=== PATIENT | male | born 1960 | race Caucasian/White ===

== ENCOUNTER 2018-05-18 06:40 | Observation (INO) | payer OTHER ==
[2018-05-18] MEDS ORDERED: NS 500 ML IV ONE (06:57)
[2018-05-18] MEDS ORDERED: ASPIRIN 81 MG CHEWABLE TAB PO ONE (06:57)
[2018-05-18] MEDS ORDERED: DIAZEPAM 5 MG/ML 1 ML SYR IVP ONE (06:58)
--- NOTE | 2018-05-18 07:08 | EDPHY ---
H & P Time Seen by Provider: 05/18/18 06:57 HPI/ROS: HPI Chest tightness, anxiety. 58-year-old male by private vehicle with his . This patient reports that for the last week he has had on and off sensations of anxiety and tightness in his chest. He reports that last night at 10:00 p.m. This tightness was worse than usual and he had some radiation of this pain/discomfort into his right arm. He reports that when he got up this morning he was doing some light activity around the house and also felt lightheaded. He does not have any history of coronary artery disease cardiac risk factors include significant family history and hyperlipidemia. Now that he is at the hospital he is feeling better. He reports still feeling somewhat anxious and having a low level of tightness in his chest. He reports he took 3 baby aspirin prior to arrival. ROS: Constitutional: No fever, no chills. As above. Eyes: No discharge. No changes in vision. ENT: No sore throat. No nasal congestion or rhinorrhea. Respiratory: No cough. No shortness of breath. Cardiac: As above, no palpitations. Gastrointestinal: No abdominal pain, no vomiting, no diarrhea. Genitourinary: No hematuria. No dysuria or increased frequency with urination. Musculoskeletal: No back pain. No neck pain. No myalgias or arthralgias. Skin: No rashes. Neurological: No headache. No focal weakness or altered sensation. Past medical history: Hip replacement. Denies any significant medical history other than noted. Social history: Nonsmoker. Here with his . No alcohol. Physical Exam: General Appearance: Alert, no distress. This patient is responding to questions appropriately and in full sentences. This patient appears well- hydrated and well-nourished. Eyes: Pupils equal and round no pallor or injection. No lid edema, erythema or injection. Respiratory: There are no retractions, lungs are clear to auscultation with good air movement bilaterally. Cardiovascular: Regular rate and rhythm. No murmur. Gastrointestinal: Abdomen is soft and nontender, no masses, bowel sounds normal. No focal tenderness at McBurney's point. No Peñaloza sign. Neurological: Motor sensory function is grossly intact. Cranial nerves are normal. Gait is normal. Skin: Warm and dry, no rashes. Musculoskeletal: Neck is supple and nontender. Extremities are symmetrical. All joints range without pain or impingement. Psychiatric: No agitation. No depression. Database: EKG: EKG time is 6:51 a.m.; EKG shows a narrow complex sinus rhythm with intermittent ventricular bigeminy and trigeminy with a ventricular rate of 76. The OH, QRS, QT intervals are within normal limits. There are no ST-T wave changes indicative of ischemic or injury pattern. No evidence of right heart strain. Interpreted by me. Imaging: Chest x-ray AP portable: Cardiac mediastinal silhouette is unremarkable. No acute cardiopulmonary disease process noted. Interpreted by me. Procedures: Emergency department course: Triage vital signs reviewed. He is mildly hypertensive. Triage vital signs otherwise normal. The patient had an IV placed. He was placed on a director of sustainability. EKG obtained and reviewed by myself shortly after arrival. He was started on IV normal saline with 500 cc to be given over the next hour. He will be given 5 mg of IV Valium for anxiety. 8:00 a.m., patient re-evaluated. Resting comfortably at this time. Still has a low level of tightness in his chest but feels better after aspirin and Valium. I discussed his heart score of 4. I explained that he was moderate wrists. I engaged in shared decision making. We will admit this patient to the hospitalist service, telemetry observation for further evaluation and management. He endorses. Hospitalist paged. Heart score of 4. 8:10 a.m., spoke with on-call hospitalist. Case discussed in detail. Patient accepted for admission. Patient's remaining emergency department course under my care has been uneventful. Patient admitted in stable condition. Differential Diagnosis: The differential diagnosis on this patient includes but is not limited to anxiety reaction, PVCs. Acute coronary syndrome, pulmonary embolism, aortic dissection, myocarditis, pericarditis, pneumonia, pneumothorax unlikely. This represents a partial list of diagnoses considered. These considerations are based on history, physical exam, past history, reassessment and diagnostic testing. Smoking Status: Never smoked Constitutional: Initial Vital Signs Temperature (C) 36.8 C 05/18/18 06:50 Heart Rate 76 05/18/18 06:50 Respiratory Rate 20 05/18/18 06:50 Blood Pressure 167/85 H 05/18/18 06:50 O2 Sat (%) 95 05/18/18 06:50 O2 Delivery Mode Room Air Allergies/Adverse Reactions: No Known Allergies Allergy (Unverified 05/18/18 06:49) Home Medications: Medication Instructions Recorded NK [No Known Home Meds] 05/18/18 Medical Decision Making - Diagnostics Imaging Results: Imaging Impressions Chest X-Ray 05/18/18 06:58 Impression: No acute abnormality. - Data Points Laboratory Results: Laboratory Results 05/18/18 07:00 05/18/18 07:00 05/18/18 05/18/18 05/18/18 07:03 07:00 07:00 WBC RBC Hgb Hct MCV MCH MCHC RDW Plt Count MPV Neut % (Auto) Lymph % (Auto) [place] % (Auto) Eos % (Auto) Baso % (Auto) Nucleat RBC Rel Count Absolute Neuts (auto) Absolute Lymphs (auto) Absolute Monos (auto) Absolute Eos (auto) Absolute Basos (auto) Absolute Nucleated RBC Immature Gran % Immature Gran # PT 14.3 SEC SEC (12.0-15.0) INR 1.09 (0.83-1.16) APTT 27.0 SEC SEC (23.0-38.0) Sodium 142 mEq/L mEq/L (135-145) Potassium 4.3 mEq/L mEq/L (3.3-5.0) Chloride 108 mEq/L mEq/L (97-110) Carbon Dioxide 23 mEq/l mEq/l (22-31) Anion Gap 11 mEq/L mEq/L (8-16) BUN 13 mg/dL mg/dL (7-23) Creatinine 0.8 mg/dL mg/dL (0.7-1.3) Estimated GFR > 60 Glucose 99 mg/dL mg/dL (70-100) Calcium 9.2 mg/dL mg/dL (8.5-10.4) POC Troponin I 0.00 ng/mL ng/mL (0.00-0.08) 05/18/18 07:00 WBC 7.34 10^3/uL 10^3/uL (3.80-9.50) RBC 5.13 10^6/uL 10^6/uL (4.40-6.38) Hgb 16.4 g/dL g/dL (13.7-17.5) Hct 46.4 % % (40.0-51.0) MCV 90.4 fL fL (81.5-99.8) MCH 32.0 pg pg (27.9-34.1) MCHC 35.3 g/dL g/dL (32.4-36.7) RDW 12.5 % % (11.5-15.2) Plt Count 143 10^3/uL L 10^3/uL (150-400) MPV 11.0 fL fL (8.7-11.7) Neut % (Auto) 64.3 % % (39.3-74.2) Lymph % (Auto) 26.8 % % (15.0-45.0) [place] % (Auto) 6.9 % % (4.5-13.0) Eos % (Auto) 1.2 % % (0.6-7.6) Baso % (Auto) 0.7 % % (0.3-1.7) Nucleat RBC Rel Count 0.0 % % (0.0-0.2) Absolute Neuts (auto) 4.71 10^3/uL 10^3/uL (1.70-6.50) Absolute Lymphs (auto) 1.97 10^3/uL 10^3/uL (1.00-3.00) Absolute Monos (auto) 0.51 10^3/uL 10^3/uL (0.30-0.80) Absolute Eos (auto) 0.09 10^3/uL 10^3/uL (0.03-0.40) Absolute Basos (auto) 0.05 10^3/uL 10^3/uL (0.02-0.10) Absolute Nucleated RBC 0.00 10^3/uL 10^3/uL (0-0.01) Immature Gran % 0.1 % % (0.0-1.1) Immature Gran # 0.01 10^3/uL 10^3/uL (0.00-0.10) PT INR APTT Sodium Potassium Chloride Carbon Dioxide Anion Gap BUN Creatinine Estimated GFR Glucose Calcium POC Troponin I Medications Given: Discontinued Medications Aspirin (Aspirin) 324 mg PO EDNOW ONE Stop: 05/18/18 06:58 Last Admin: 05/18/18 07:38 Dose: Not Given Diazepam (Valium) 5 mg IVP EDNOW ONE Stop: 05/18/18 06:59 Last Admin: 05/18/18 07:08 Dose: 5 mg Sodium Chloride (Ns) 500 mls @ 1,000 mls/hr IV EDNOW ONE PRN Reason: Protocol Stop: 05/18/18 07:26 Last Admin: 05/18/18 07:08 Dose: 500 mls Point of Care Test Results: Chemistry 05/18/18 07:03 POC Troponin I 0.00 ng/mL ng/mL (0.00-0.08) Departure - Departure Disposition: [facility] Inpatient Acute Clinical Impression: Anxiety, Chest discomfort Referrals: Cheyanne Lacey MD [Primary Care Provider] - As per Instructions
[2018-05-18 07:12] LABS: PLATELET COUNT 143 10^3/uL (150-400)
[2018-05-18 07:20] LABS: INR 1.09 (0.83-1.16); PROTIME(PATIENT) 14.3 SEC (12.0-15.0)
[2018-05-18] MEDS ORDERED: ACETAMINOPHEN 325 MG TAB PO PRN (08:39)
[2018-05-18] MEDS ORDERED: ONDANSETRON DISINTEGRATING 4 MG TAB PO PRN (08:39)
[2018-05-18] MEDS ORDERED: ONDANSETRON 4 MG/2 ML VIAL IVP PRN (08:39)
[2018-05-18] MEDS ORDERED: NITROGLYCERIN 0.4 MG BTL SL PRN (08:47)
[2018-05-18] MEDS ORDERED: ENOXAPARIN 40 MG/0.4 ML SYR SC SCH (09:00)
--- NOTE | 2018-05-18 11:00 | PDGENHP ---
History and Physical - Chief Complaint weird sensation in chest - History of Present Illness 58yo M with history of TAMIE, low grade prostate cancer, thrombocytopenia presents with 1 week of "chest anxiety." Not overt chest pain/pressure/ discomfort but it feels like his chest is tight. Associated with right arm numbness and pre-syncope that began last night and persisted into this morning prompting him to come to ED. His chest symptoms are not exertional or positional. No dyspnea, syncope, palpitations, orthopnea, leg swelling. He noticed some relief after taking aspirin this morning. He has been under stress at work recently. Has never had cardiac stress test or cardiac issues before. Of note, he had his left hip replaced 02/2018. Was on prophylactic anticoagulation for 4 weeks following this. Has not had any shortness of breath or unilateral leg swelling. No personal or family hx of clots. In ED, he had stable vitals with initial ecg/troponin negative for ischemia. His heart score was 4 so being admitted for risk stratification. He did have significant PVCs on telemetry while in the ED. Case discussed with ED physician Thania Peoples. Prior records reviewed. History Information - Allergies/Home Medication List Allergies/Adverse Reactions: No Known Allergies Allergy (Verified 05/18/18 08:54) Home Medications: Aspirin [Aspirin 325 mg (*)] 325 mg PO DAILY PRN 05/18/18 [Last Taken 05/18/18] Herbals/Supplements -Info Only 1 ea PO DAILY 05/18/18 [Last Taken Unknown] Ibuprofen [Motrin (*)] 200 mg PO DAILY PRN 05/18/18 [Last Taken Unknown] [place]-3 Fatty Acids [Fish Oil 1000 mg (*)] 1,000 mg PO DAILY 05/18/18 [Last Taken Unknown] I have personally reviewed and updated: family history, medical history, social history, surgical history - Past Medical History Additional medical history: TAMIE s/p UVPP (not on CPAP), prostate cancer (shelia =6, diagnosed summer 2017), thrombocytopenia, hip dysplasia, Lyme disease ( reportedly diagnosed in 2001 although no rash, s/p extended course of antibiotics; 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 father: [place] in mid-60s - Social History Smoking Status: Never smoked Alcohol Use: None Drug Use: None Additional social history: lives with Review of Systems Review of Systems: ROS: 10pt was reviewed & negative except for what was stated in HPI & below Physical Exam Physical Exam: Temp Pulse Resp BP Pulse Ox 36.6 C 74 12 124/70 H 96 05/18/18 09:30 05/18/18 10:51 05/18/18 09:30 05/18/18 10:51 05/18/18 09:30 Constitutional: no apparent distress, appears nourished, not in pain Eyes: PERRL, anicteric sclera, EOMI Ears, Nose, Mouth, Throat: moist mucous membranes, hearing normal, ears appear normal, no oral mucosal ulcers Cardiovascular: regular rate and rhythym, no murmur, rub, or gallop, No JVD, No edema Respiratory: no respiratory distress, no rales or rhonchi, clear to auscultation Gastrointestinal: normoactive bowel sounds, soft, non-tender abdomen, no palpable masses Skin: warm, normal color, no rashes or abrasions, no fluctuance, no induration, No mottled Musculoskeletal: full muscle strength, no muscle tenderness, normal joint ROM, no joint effusions Neurologic: AAOx3, sensation intact bilaterally, CN II-XII Intact, No weakness Psychiatric: interacting appropriately, not anxious, not encephalopathic, thought process linear Lab Data & Imaging Review 05/18/18 07:00 05/18/18 07:00 WBC 7.34 10^3/uL (3.80-9.50) 05/18/18 07:00 RBC 5.13 10^6/uL (4.40-6.38) 05/18/18 07:00 Hgb 16.4 g/dL (13.7-17.5) 05/18/18 07:00 Hct 46.4 % (40.0-51.0) 05/18/18 07:00 MCV 90.4 fL (81.5-99.8) 05/18/18 07:00 MCH 32.0 pg (27.9-34.1) 05/18/18 07:00 MCHC 35.3 g/dL (32.4-36.7) 05/18/18 07:00 RDW 12.5 % (11.5-15.2) 05/18/18 07:00 Plt Count 143 10^3/uL (150-400) L 05/18/18 07:00 MPV 11.0 fL (8.7-11.7) 05/18/18 07:00 Neut % (Auto) 64.3 % (39.3-74.2) 05/18/18 07:00 Lymph % (Auto) 26.8 % (15.0-45.0) 05/18/18 07:00 [place] % (Auto) 6.9 % (4.5-13.0) 05/18/18 07:00 Eos % (Auto) 1.2 % (0.6-7.6) 05/18/18 07:00 Baso % (Auto) 0.7 % (0.3-1.7) 05/18/18 07:00 Nucleat RBC Rel Count 0.0 % (0.0-0.2) 05/18/18 07:00 Absolute Neuts (auto) 4.71 10^3/uL (1.70-6.50) 05/18/18 07:00 Absolute Lymphs (auto) 1.97 10^3/uL (1.00-3.00) 05/18/18 07:00 Absolute Monos (auto) 0.51 10^3/uL (0.30-0.80) 05/18/18 07:00 Absolute Eos (auto) 0.09 10^3/uL (0.03-0.40) 05/18/18 07:00 Absolute Basos (auto) 0.05 10^3/uL (0.02-0.10) 05/18/18 07:00 Absolute Nucleated RBC 0.00 10^3/uL (0-0.01) 05/18/18 07:00 Immature Gran % 0.1 % (0.0-1.1) 05/18/18 07:00 Immature Gran # 0.01 10^3/uL (0.00-0.10) 05/18/18 07:00 PT 14.3 SEC (12.0-15.0) 05/18/18 07:00 INR 1.09 (0.83-1.16) 05/18/18 07:00 APTT 27.0 SEC (23.0-38.0) 05/18/18 07:00 Sodium 142 mEq/L (135-145) 05/18/18 07:00 Potassium 4.3 mEq/L (3.3-5.0) 05/18/18 07:00 Chloride 108 mEq/L (97-110) 05/18/18 07:00 Carbon Dioxide 23 mEq/l (22-31) 05/18/18 07:00 Anion Gap 11 mEq/L (8-16) 05/18/18 07:00 BUN 13 mg/dL (7-23) 05/18/18 07:00 Creatinine 0.8 mg/dL (0.7-1.3) 05/18/18 07:00 Estimated GFR > 60 05/18/18 07:00 Glucose 99 mg/dL (70-100) 05/18/18 07:00 Calcium 9.2 mg/dL (8.5-10.4) 05/18/18 07:00 POC Troponin I 0.00 ng/mL (0.00-0.08) 05/18/18 07:03 NT-Pro-B Natriuret Pep 54 pg/mL (0-125) 05/18/18 07:00 TSH 2.670 uIU/mL (0.465-4.680) 05/18/18 07:00 Visualized and Interpreted Chest x-ray results: Yes Chest X-Ray results: no infiltrate, normal, normal heart size Visualized and Interpreted EKG results: Yes EKG additional interpertation: Sinus rhythm with frequent PVCs and occasional bigeminy, no AV block, no acute ST-T segment changes Assessment & Plan Assessment: 58yo M with history of TAMIE, low grade prostate cancer, thrombocytopenia presents with 1 week of "chest anxiety." He is at intermediate risk of cardiac disease and will further risk stratify. Plan: #Chest discomfort: Not a convincing story for coronary ischemia and initial trop /ecg negative despite a week of symptoms. Intermediate risk so will further risk stratify. Low suspicion for PE as not tachycardic or hypoxic and low Wells score. - Serial trops/ecgs - Telemetry - TTE - Exercise stress with NM - A1c, lipids #PVCs: Noted on telemetry, ecg. - Monitor electrolytes, eval as above - Consider beta carolyne prior to discharge #Elevated BP: Doesn't carry diagnosis of htn but has been elevated in the past. Will likely need agent to control prior to discharge. #TAMIE: s/p surgical management. Doesn't use CPAP. #Prostate cancer: Diagnosed summer 2017. [place] 6. He is getting serial PSA checks (last 1.7). #Thrombocytopenia: Plts 140s, which is consistent with prior. #Osteoarthritis/hip dysplasia: s/p L DIANA 02/2018. Doing well post-operatively. Diet: cardiac VTE ppx: ambulate Code: full Dispo: Admit under observation for evaluation of above. Possibly discharge late today or tomorrow pending results of above.
--- NOTE | 2018-05-18 14:11 | ECHO ---
[email or web address] [address] [address] Main: [phone] Fax: [email or web address] Echocardiogram Name: DANE JIMENES MR#: [id number] Study Date: 05/18/2018 Study Time: 01:18 PM Date of : 1960 Age: 58 year(s) Height: 182.9 cm (72 in.) Weight: 108.86 kg (240 lb.) BSA: 2.3 m2 Gender: Male Examination: Echo Indication: chest pain, eval for wall motion abnormality Image Quality: Adequate Contrast: Requested by: Bran Urbina BP: 159 mmHg/95 mmHg Heart Rate: Rhythm: Indication: chest pain, eval for wall motion abnormality Procedure Staff Electric Accounting Machine Operator: Sandra Banda RDCS Reading Physician: Ashvin Bowers MD Requesting Provider: Conclusions: Normal global systolic LV function. EF is 62 %. Mild mitral valve regurgitation is present. The tricuspid valve is normal in appearance and function. The pulmonary artery pressure is normal. Measurements: Chambers Valvular Assessment AV/MV Valvular Assessment TV/PV Normal Normal Normal Name Value Range Name Value Range Name Value Range Ao Kourtney (2D): 3.2 cm (1.4 cm-2.6 AV Vmax: 1.42 m/s (1 m/s-1.7 TR Vmax: 2.25 mm/s ( - ) cm) m/s) TR PGmax: 20 mmHg ( - ) IVSd (2D): 0.9 cm (0.6 cm-1.1 AV maxP mmHg ( - ) syst. PAP: 25 mmHg ( - ) cm) AV meanP mmHg ( - ) PV Vmax: 1.21 m/s (0.6 m/s-0.9 LVDd (2D): 5.1 cm (4.2 cm-5.9 BRENDA (VTI): 3.1 cm ( - ) m/s) cm) MV E Vmax: 0.83 m/s ( - ) PV PGmax: 6 mmHg ( - ) LVDs (2D): 3.2 cm (2.1 cm-4 MV A Vmax: 0.59 m/s ( - ) cm) MV E/A: 1.41 ( - ) LVPWd (2D): 0.9 cm (0.6 cm-1 cm) MV PHT: 0.050 s ( - ) LVOTd 2.2 cm 2.2 cm mm MVA (PHT): 4.4 s ( - ) LVEF (BP): 62 % (>=55 %) RVDd(2D): 3.0 cm (1.9 cm-3.8 cmmm) Continued Measurements: Chambers Valvular Assessment AV/MV Valvular Assessment TV/PV Name Value Name Value Name Value LADs: 3.6 cm MV DecTime: 190 m/s CVP (est.): 5 mmHg Patient: DANE JIMENES Study Date: 05/18/2018 Page 1 of 2 01:18 PM LADs Lon.0 cm MV E' Septal: 0.12 m/s LA Area: 15.8 cm2 MV E/E' Septal: 7.10 LA Volume: 39 ml MV E/E' Lateral: 6.30 LA Volume Index: 17.0 ml/m2 RA Area: 16.0 cm2 Additional Vessels Name Value Ao Ascendin.1 cm Inferior Vena Cava: 1.5 cm Findings: Left Ventricle: Normal size left ventricle. No LV hypertrophy. Normal global systolic LV function. EF is 62 %. DIASTOLIC FUNCTION APPEARS TO BE NORMAL ACCORDING TO CRITERIA. No evidence of wall motion abnormalities. Right Ventricle: Normal size right ventricle. Normal RV function. Left Atrium: The left atrium is normal in size. Right Atrium: The right atrium is normal in size. Mitral Valve: The mitral valve is normal in appearance and function. Mild mitral valve regurgitation is present. No mitral stenosis is present. Aortic Valve: The aortic valve is tri-leaflet. There is no significant aortic valve regurgitation. No aortic valve stenosis is present. Tricuspid Valve: The tricuspid valve is normal in appearance and function. The pulmonary artery pressure is normal. Right ventricular systolic pressure measures 25mmHg. Trivial tricuspid valve regurgitation. Pulmonic Valve: The pulmonic valve is normal in appearance and function. Trivial pulmonic valve regurgitation. Aorta: The aorta is normal. Normal size aortic root measuring 3.2 cm. Normal size ascending aorta measuring 3.1 cm. IVC: The IVC is normal sized. Pericardium: No pericardial effusion. No pleural effusion. (No Signature Object) Patient: DANE JIMENES Study Date: 05/18/2018 Page 2 of 2 01:18 PM [id number]
--- NOTE | 2018-05-18 15:40 | CPR ---
DATE OF PROCEDURE: 05/18/2018 SUPERVISING PHYSICIAN: Braydon Bergman MD PROCEDURE: Nuclear treadmill stress test. REASON FOR TEST: Chest discomfort. Resting EKG shows a sinus rhythm with a rate of 62. Anterior leads show late progression. Resting b lood pressure 126/78, resting heart rate 62. He has no chest discomfort at this time. He does have family history of coronary artery disease. STRESS PORTION: He was exercised according to the Jasvir protocol for a total of 7 minutes and 30 sec onds. He reached a maximal MET level of 8.6, maximal blood pressure 174/76, maximal heart rate 143. He had occasional PVC noted. There were no other significant EKG changes with exercise. He had no chest discomfort with exercise. Nuclear isotope was injected at his maximal predicted heart rate. M aximal heart rate 143. RECOVERY: He spontaneously recovered within 3 minutes of exercise. His recovery blood pressure was 140/80, heart rate 88. He remained asymptomatic. There were no EKG changes during recovery. At this time, he currently is stable for nuclear imaging. /[id number]/MODL
--- NOTE | 2018-05-18 17:50 | PDDCSUM ---
Discharge Summary Discharge Summary: Date of Admission: 05/18/2018 Date of Discharge: 05/18/2018 Consultants: none Procedures/Studies: exercise stress with MPI, TTE Discharge Diagnoses: 1. Chest discomfort 2. Frequent PVCs 3. Elevated BP 4. TAMIE 5. Prostate cancer 6. Thrombocytopenia 7. Osteoarthritis Brief Hospital Course by Problem: 58yo M with history of TAMIE, low grade prostate cancer, thrombocytopenia presents with 1 week of "chest anxiety." He is at intermediate risk of cardiac disease and underwent further risk stratification. 1. Chest discomfort: Not a convincing story for coronary ischemia and serial trop/ecg negative despite a week of symptoms. TTE normal. Exercise stress with MPI normal. Overall suspect his symptoms may be due to frequent PVCs, none of which were sustained. We discussed treatment for this with beta blockers but he declined and would like to monitor for now. I did discuss that if these continue for long periods of time, they can lead to tachyarrythmia-mediated cardiomyopathy. He would like to further discuss with his PCP. 2. PVCs: Noted on telemetry, mild burden. [place] did not increase during exercise. 3. Elevated BP: Intermittently above goal. Doesn't carry diagnosis of htn but has been elevated in the past. 4. TAMIE: s/p surgical management. Doesn't use CPAP. 5. Prostate cancer: Diagnosed summer 2017. [place] 6. He is getting serial PSA checks (last 1.7). 6. Thrombocytopenia: Plts 140s, which is consistent with prior. 7. Osteoarthritis/hip dysplasia: s/p L DIANA 02/2018. Doing well post-operatively. Medications: Please refer to EMR for complete list. No changes were made during this admission. Follow Up Plan: 1. PCP visit within 1 week. Recommend continuing discussion re: monitoring PVCs and possible addition of beta carolyne. 2. Continue to modify cardiovascular risk factors: monitor A1c, lipids, BP on routine basis. Physical Exam: Vitals and telemetry reviewed; occasional PVCs with otherwise normal BP and oxygen saturations. He is alert and oriented. Regular rate and rhythm with occasional ectopy on cardiac exam; no murmurs. Lungs clear. Abdomen soft. No lower extremity edema or JVD.
[2018-05-18 18:01] VITALS: BP 132/91
[2018-05-19] MEDS ORDERED: OMEGA-3 FATTY ACIDS 1,000 MG CAP PO SCH (09:00)
[2018-05-19] MEDS ORDERED: Herbals/Supplements -Info Only PO SCH (09:00)
[2018-05-19] MEDS ORDERED: ASPIRIN 325 MG TAB PO PRN (11:12)
--- NOTE | 2018-05-23 14:21 | CPEKG ---
Test Reason : OPEN Blood Pressure : / mmHG Vent. Rate : 076 BPM Atrial Rate : 076 BPM P-R Int : 172 ms QRS Dur : 102 ms QT Int : 401 ms P-R-T Axes : 019 -08 002 degrees QTc Int : 451 ms Atrial fibrillation Ventricular bigeminy Confirmed by Napoleon Rivera ([id number]) on 05/23/2018 2:20:47 PM Referred By: Confirmed By:Napoleon Rivera
== END 2018-05-18 18:01 | disposition home or self-care (01) ==
LOC: F2W 11:01
PROVIDERS: ADMIT Internal Medicine; ATTEND Internal Medicine
DX: R07.9 Chest pain, unspecified (principal); I49.3 Ventricular premature depolarization; R03.0 Elevated blood-pressure reading, without diagnosis of hypertension; E86.9 Volume depletion, unspecified; C61 Malignant neoplasm of prostate; D69.6 Thrombocytopenia, unspecified; G47.33 Obstructive sleep apnea (adult) (pediatric); E78.5 Hyperlipidemia, unspecified; M19.90 Unspecified osteoarthritis, unspecified site; Z79.82 Long term (current) use of aspirin; Z96.642 Presence of left artificial hip joint; Z82.49 Family history of ischemic heart disease and other diseases of the circulatory system
CPT/HCPCS: 71045; 78452; 93005; 93017; 93306; 96374; 99285; A9500; G0378; 84484-PO; J3360